=== PATIENT | male | born 1975 | race Caucasian/White ===

== ENCOUNTER 2017-06-03 07:25 | Emergency (ER) | payer BC ==
[~2017-06-03] VITALS: Ht 182.9 cm; Wt 147.4 kg
== END 2017-06-03 10:15 | disposition home or self-care (01) ==
LOC: ED 07:25
DX: N20.0 Calculus of kidney (principal); I10 Essential (primary) hypertension
CPT/HCPCS: 74176; 80053; 81001; 85025; 96361; 96374; 96375; 99284; J1170; J1885; J2405; J7030